=== PATIENT | male | born 1975 | race Caucasian/White ===

== ENCOUNTER 2018-02-15 10:32 | Emergency (ER) | payer OTHER ==
[~2018-02-15] VITALS: Ht 182.9 cm; Wt 97.5 kg
[~2018-02-15 10:32] MED LIST: MOTRIN800 MG PO; NABUMETONE500 MG PO; PERCOCET 5/3251 TAB PO
[2018-02-15] MEDS ORDERED: VASOTEC2.5 MG (10:37)
[2018-02-15] MEDS ORDERED: BUTALB-ACETAMI1 EACH PO (16:15)
== END 2018-02-15 16:51 | disposition home or self-care (01) ==
LOC: ER 10:32
DX: G43.109 Migraine with aura, not intractable, without status migrainosus (principal)

== ENCOUNTER 2018-02-28 14:23 | Outpatient (CLI) | payer OTHER ==
[~2018-02-28 14:23] MED LIST changes: +BUTALB-ACETAMI1 EACH PO; +VASOTEC2.5 MG
== END 2018-02-28 14:42 | disposition home or self-care (01) ==
LOC: MRI 14:23
DX: I67.1 Cerebral aneurysm, nonruptured (principal)
CPT/HCPCS: 70553

== ENCOUNTER 2018-03-01 14:42 | Outpatient (CLI) | payer OTHER | END 2018-03-01 15:18 | disposition home or self-care (01) | LOC: MRI 14:42 | DX: I67.1 Cerebral aneurysm, nonruptured (principal) | CPT/HCPCS: 70544 ==

== ENCOUNTER 2020-05-29 05:53 | Emergency (ER) | payer OTHER ==
[~2020-05-29] VITALS: Ht 182.9 cm; Wt 99.8 kg
== END 2020-05-29 10:34 | disposition home or self-care (01) ==
LOC: ER 05:53
DX: M62.830 Muscle spasm of back (principal)